=== PATIENT | male | born 1950 ===

== ENCOUNTER 2021-04-26 16:48 | Inpatient (IN) | payer BC, MEDICARE ==
[2021-04-26] MEDS ORDERED: Morphine 4 MG/ML VIAL ONE (17:11)
[2021-04-26 18:03] LABS: #Lymphocytes 0.6 thou/uL (1.20-3.40); #Monocytes 1.1 thou/uL (0.11-0.59); #Neutrophils 10.8 thou/uL (1.40-6.50); %Monocytes 8.5 % (0.0-10.0); %Neutrophils 86.5 % (42.0-75.0); Hemoglobin 9.1 g/dL (14.0-18.0); Mean Corpuscular HGB CONC 33.6 g/dL (32.0-36.0); Mean Platelet Volume 7.4 fL (7.4-10.4); Platelet Count 217 thou/uL (130-400); RBC Distribution Width 11.7 % (11.5-14.5); Red Blood Cell (RBC) Count 2.68 mill/uL (4.70-6.10); White Blood Cell (WBC) Count 12.5 thou/uL (4.8-10.8)
[2021-04-26 18:14] LABS: INR-International Normal Ratio 1.2; PTT 25.1 sec (22.9-36.1); Prothrombin Time 15.3 sec (12.0-14.7)
[2021-04-26 18:19] LABS: Lactic Acid 1.2 mmol/L (0.5-2.2)
[2021-04-26 18:22] LABS: ALT (SGPT) 60 U/L (8-55); AST (SGOT) 158 U/L (5-34); Albumin 2.9 g/dL (3.4-4.8); Alkaline Phosphatase 48 U/L (40-110); Anion Gap 15 mmol/L (10-20); BUN (Urea Nitrogen) 69 mg/dL (8.4-25.7); Bilirubin, Total 0.9 mg/dL (0.2-1.2); Calc. Creatinine Clearance 0 mL/min (70-130); Carbon Dioxide 20 mmol/L (23-31); Chloride 105 mmol/L (98-107); Globulin 2.2 g/dL (2.4-3.5); Glucose 104 mg/dL (80-115); Magnesium 2.2 mg/dL (1.6-2.6); Phosphorus 4.7 mg/dL (2.3-4.7); Potassium 5.8 mmol/L (3.5-5.1); Protein, Total 5.1 g/dL (5.8-8.1); Sodium 134 mmol/L (136-145)
[2021-04-26] MEDS ORDERED: Dextrose 50% Abboject 50 ML SYRINGE SLOW IVP PRN (18:27)
[2021-04-26] MEDS ORDERED: Ondansetron PF 4 MG/2 ML Vial IVP PRN (18:27)
[2021-04-26] MEDS ORDERED: Dextrose 5% in Water 1,000 ML IV PRN (18:27)
[2021-04-26] MEDS ORDERED: hydrALAZINE 20 MG/ML VIAL SLOW IVP PRN (18:27)
[2021-04-26] MEDS ORDERED: HYDROcodone/Acetaminophen 10/325 mg Tablet PO PRN ×2 (18:27→19:35)
[2021-04-26 18:48] LABS: CK (CPK) 7955 U/L (30-200)
[2021-04-26 20:50] VITALS: BMI 21.2
[2021-04-26] MEDS: Senokot S 8.6-50 MG TAB PO SCH (20:57)
[2021-04-26] MEDS: Famotidine 20 MG TAB PO SCH (20:57)
[2021-04-26] MEDS ORDERED: Bacitracin 1 PK TOP SCH (21:00)
[2021-04-26] MEDS: ceFAZolin Sodium/D5W 2 GM in Premix Bag 1 BAG IVPB SCH (21:19)
[2021-04-26] MEDS: Sodium Chloride 0.9% 1,000 ML IV SCH (21:19)
[2021-04-26] MEDS: Acetaminophen 500 MG TAB PO SCH (23:26)
[2021-04-27] MEDS: Morphine 4 MG/ML VIAL SLOW IVP PRN ×2 (04:55→08:50)
[2021-04-27] MEDS: ceFAZolin Sodium/D5W 2 GM in Premix Bag 1 BAG IVPB SCH ×2 (04:55→18:00)
[2021-04-27] MEDS: Sodium Chloride 0.9% 1,000 ML IV SCH ×4 (04:56→20:45)
[2021-04-27] MEDS: Acetaminophen 500 MG TAB PO SCH (04:56)
[2021-04-27 08:15] LABS: #Lymphocytes 0.9 thou/uL (1.20-3.40); #Neutrophils 9.4 thou/uL (1.40-6.50); %Basophils 0.1 % (0.0-1.0); %Eosinophils 0.1 % (0.0-10.0); %Lymphocytes 7.6 % (21.0-51.0); %Monocytes 8.9 % (0.0-10.0); %Neutrophils 83.4 % (42.0-75.0); Hemoglobin 8.6 g/dL (14.0-18.0); Mean Corpuscular HGB CONC 33.4 g/dL (32.0-36.0); Mean Corpuscular Hemoglobin 33.4 pg (27.0-31.0); Mean Platelet Volume 7.3 fL (7.4-10.4); Platelet Count 200 thou/uL (130-400); RBC Distribution Width 11.6 % (11.5-14.5); Red Blood Cell (RBC) Count 2.56 mill/uL (4.70-6.10); White Blood Cell (WBC) Count 11.3 thou/uL (4.8-10.8)
[2021-04-27 08:31] LABS: Anion Gap 10 mmol/L (10-20); BUN (Urea Nitrogen) 55 mg/dL (8.4-25.7); Calc. Creatinine Clearance 19 mL/min (70-130); Calcium 7.9 mg/dL (7.8-10.44); Carbon Dioxide 26 mmol/L (23-31); Chloride 103 mmol/L (98-107); Glucose 91 mg/dL (80-115); Magnesium 2.2 mg/dL (1.6-2.6); Phosphorus 3.8 mg/dL (2.3-4.7); Potassium 4.4 mmol/L (3.5-5.1); Sodium 135 mmol/L (136-145)
[2021-04-27 08:45] LABS: CK (CPK) 6177 U/L (30-200)
[2021-04-27] MEDS: Bacitracin 1 PK TOP SCH ×2 (08:54→20:39)
[2021-04-27] MEDS: Polyethylene Glycol 3350 17 GM Packet PO SCH (08:55)
[2021-04-27] MEDS: Senokot S 8.6-50 MG TAB PO SCH ×2 (08:55→20:38)
[2021-04-27] MEDS ORDERED: Acetaminophen 325 MG TAB PO SCH (12:45)
[2021-04-27] MEDS ORDERED: Acetaminophen/Codeine 30-300mg Tablet PO SCH (12:45)
[2021-04-27] MEDS: Cyclobenzaprine 10 MG TAB PO PRN (12:51)
[2021-04-27] MEDS: Acetaminophen 325 MG TAB PO SCH (17:59)
[2021-04-27] MEDS: Acetaminophen/Codeine 30-300mg Tablet PO SCH (18:00)
[2021-04-27] MEDS: Famotidine 20 MG TAB PO SCH (20:38)
[2021-04-28] MEDS: Acetaminophen/Codeine 30-300mg Tablet PO SCH ×5 (00:44→18:01)
[2021-04-28] MEDS: Acetaminophen 325 MG TAB PO SCH ×5 (00:44→18:07)
[2021-04-28] MEDS: Sodium Chloride 0.9% 1,000 ML IV SCH ×3 (01:25→20:33)
[2021-04-28 05:01] LABS: Anion Gap 8 mmol/L (10-20); BUN (Urea Nitrogen) 30 mg/dL (8.4-25.7); CK (CPK) 3662 U/L (30-200); Calc. Creatinine Clearance 36 mL/min (70-130); Calcium 7.7 mg/dL (7.8-10.44); Carbon Dioxide 25 mmol/L (23-31); Chloride 106 mmol/L (98-107); Glucose 109 mg/dL (80-115); Sodium 135 mmol/L (136-145)
[2021-04-28 05:03] LABS: Phosphorus 1.9 mg/dL (2.3-4.7)
[2021-04-28] MEDS: Cyclobenzaprine 10 MG TAB PO PRN ×2 (05:59→20:33)
[2021-04-28] MEDS: ceFAZolin Sodium/D5W 2 GM in Premix Bag 1 BAG IVPB SCH ×2 (05:59→18:02)
[2021-04-28] MEDS ORDERED: Sodium Phosphate 30 MMOL in Sodium Chloride 0.9% 250 ML 250 ML IVPB SCH (06:29)
[2021-04-28] MEDS: Senokot S 8.6-50 MG TAB PO SCH ×2 (09:34→20:33)
[2021-04-28] MEDS: Bacitracin 1 PK TOP SCH ×2 (09:35→20:42)
[2021-04-28] MEDS: Ferrous Sulfate 325 MG TAB PO SCH (09:46)
[2021-04-28] MEDS: Ascorbic Acid 500 mg Chewable Tablet PO SCH (09:47)
[2021-04-28] MEDS: Polyethylene Glycol 3350 17 GM Packet PO SCH (09:47)
[2021-04-28] MEDS: Famotidine 20 MG TAB PO SCH (20:33)
[2021-04-29] MEDS: Acetaminophen 325 MG TAB PO SCH ×5 (00:07→23:54)
[2021-04-29] MEDS: Acetaminophen/Codeine 30-300mg Tablet PO SCH ×5 (00:08→23:54)
[2021-04-29] MEDS: Sodium Chloride 0.9% 1,000 ML IV SCH (04:15)
[2021-04-29 05:47] LABS: Anion Gap 7 mmol/L (10-20); BUN (Urea Nitrogen) 14 mg/dL (8.4-25.7); CK (CPK) 1737 U/L (30-200); Calc. Creatinine Clearance 51 mL/min (70-130); Calcium 8.1 mg/dL (7.8-10.44); Carbon Dioxide 28 mmol/L (23-31); Chloride 107 mmol/L (98-107); Glucose 92 mg/dL (80-115); Potassium 3.9 mmol/L (3.5-5.1); Sodium 138 mmol/L (136-145)
[2021-04-29] MEDS: ceFAZolin Sodium/D5W 2 GM in Premix Bag 1 BAG IVPB SCH ×3 (06:00→21:45)
[2021-04-29] MEDS: Ferrous Sulfate 325 MG TAB PO SCH (10:12)
[2021-04-29] MEDS: Polyethylene Glycol 3350 17 GM Packet PO SCH (10:13)
[2021-04-29] MEDS: Ascorbic Acid 500 mg Chewable Tablet PO SCH (10:13)
[2021-04-29] MEDS: Senokot S 8.6-50 MG TAB PO SCH ×2 (10:13→21:46)
[2021-04-29] MEDS: Cyclobenzaprine 10 MG TAB PO PRN (10:21)
[2021-04-29] MEDS ORDERED: Lidocaine 1% (PF) 30 ML VIAL ONE (14:23)
[2021-04-29] MEDS: Bacitracin 1 PK TOP SCH ×2 (14:48→21:54)
[2021-04-29] MEDS: Heparin 5,000 UNITS/ML VIAL SC SCH ×2 (15:52→21:46)
[2021-04-29] MEDS: Famotidine 20 MG TAB PO SCH (21:46)
[2021-04-29] MEDS: Lisinopril 5 MG TAB PO SCH (21:46)
[2021-04-30] MEDS: Acetaminophen/Codeine 30-300mg Tablet PO SCH ×4 (05:18→23:33)
[2021-04-30] MEDS: Acetaminophen 325 MG TAB PO SCH ×4 (05:18→23:33)
[2021-04-30] MEDS: ceFAZolin Sodium/D5W 2 GM in Premix Bag 1 BAG IVPB SCH (05:26)
[2021-04-30] MEDS: Ferrous Sulfate 325 MG TAB PO SCH (10:41)
[2021-04-30] MEDS: Bacitracin 1 PK TOP SCH ×2 (10:41→21:05)
[2021-04-30] MEDS: Senokot S 8.6-50 MG TAB PO SCH ×2 (10:41→21:06)
[2021-04-30] MEDS: Ascorbic Acid 500 mg Chewable Tablet PO SCH (10:41)
[2021-04-30] MEDS: Heparin 5,000 UNITS/ML VIAL SC SCH ×3 (10:41→21:05)
[2021-04-30] MEDS: Lisinopril 5 MG TAB PO SCH ×2 (10:41→21:05)
[2021-04-30] MEDS: Polyethylene Glycol 3350 17 GM Packet PO SCH (10:46)
[2021-04-30] MEDS: Cyclobenzaprine 10 MG TAB PO PRN (10:52)
[2021-04-30] MEDS: Famotidine 20 MG TAB PO SCH (21:05)
[2021-04-30] MEDS: Cephalexin 250 MG CAP PO SCH (21:05)
[2021-05-01] MEDS: Acetaminophen 325 MG TAB PO SCH ×3 (05:11→17:19)
[2021-05-01] MEDS: Acetaminophen/Codeine 30-300mg Tablet PO SCH ×3 (05:12→17:20)
[2021-05-01] MEDS: Cephalexin 250 MG CAP PO SCH ×2 (09:21→20:53)
[2021-05-01] MEDS: Ferrous Sulfate 325 MG TAB PO SCH (09:21)
[2021-05-01] MEDS: Heparin 5,000 UNITS/ML VIAL SC SCH ×3 (09:21→20:53)
[2021-05-01] MEDS: Bacitracin 1 PK TOP SCH ×2 (09:21→20:52)
[2021-05-01] MEDS: Ascorbic Acid 500 mg Chewable Tablet PO SCH (09:22)
[2021-05-01] MEDS: Saccharomyces boulardii 250 MG CAP PO SCH (09:22)
[2021-05-01] MEDS: Lisinopril 5 MG TAB PO SCH ×2 (09:22→20:53)
[2021-05-01] MEDS: Polyethylene Glycol 3350 17 GM Packet PO SCH (09:25)
[2021-05-01] MEDS: Senokot S 8.6-50 MG TAB PO SCH ×2 (09:25→20:52)
[2021-05-01] MEDS: Cyclobenzaprine 10 MG TAB PO PRN (09:56)
[2021-05-01] MEDS: Famotidine 20 MG TAB PO SCH (20:53)
[2021-05-02] MEDS: Acetaminophen 325 MG TAB PO SCH ×5 (00:21→23:21)
[2021-05-02] MEDS: Acetaminophen/Codeine 30-300mg Tablet PO SCH ×5 (00:21→23:20)
[2021-05-02] MEDS: Ferrous Sulfate 325 MG TAB PO SCH (09:32)
[2021-05-02] MEDS: Lisinopril 5 MG TAB PO SCH ×2 (09:32→20:22)
[2021-05-02] MEDS: Polyethylene Glycol 3350 17 GM Packet PO SCH (09:32)
[2021-05-02] MEDS: Bacitracin 1 PK TOP SCH ×2 (09:32→20:23)
[2021-05-02] MEDS: Cephalexin 250 MG CAP PO SCH ×2 (09:33→20:22)
[2021-05-02] MEDS: Ascorbic Acid 500 mg Chewable Tablet PO SCH (09:33)
[2021-05-02] MEDS: Heparin 5,000 UNITS/ML VIAL SC SCH ×3 (09:33→20:23)
[2021-05-02] MEDS: Saccharomyces boulardii 250 MG CAP PO SCH (09:33)
[2021-05-02] MEDS: Senokot S 8.6-50 MG TAB PO SCH ×2 (09:33→20:22)
[2021-05-02] MEDS: Cyclobenzaprine 10 MG TAB PO PRN ×2 (09:38→20:26)
[2021-05-02] MEDS: Famotidine 20 MG TAB PO SCH (20:23)
[2021-05-03] MEDS: Acetaminophen/Codeine 30-300mg Tablet PO SCH ×4 (05:15→23:56)
[2021-05-03] MEDS: Acetaminophen 325 MG TAB PO SCH ×4 (05:16→23:57)
[2021-05-03] MEDS: Polyethylene Glycol 3350 17 GM Packet PO SCH (08:39)
[2021-05-03] MEDS: Ferrous Sulfate 325 MG TAB PO SCH (08:39)
[2021-05-03] MEDS: Bacitracin 1 PK TOP SCH ×2 (08:39→21:40)
[2021-05-03] MEDS: Senokot S 8.6-50 MG TAB PO SCH ×2 (08:39→21:39)
[2021-05-03] MEDS: Ascorbic Acid 500 mg Chewable Tablet PO SCH (08:39)
[2021-05-03] MEDS: Saccharomyces boulardii 250 MG CAP PO SCH (08:40)
[2021-05-03] MEDS: Lisinopril 5 MG TAB PO SCH ×2 (08:40→21:39)
[2021-05-03] MEDS: Heparin 5,000 UNITS/ML VIAL SC SCH ×3 (08:40→21:40)
[2021-05-03 18:11] LABS: SARS-CoV-2 PCR by NAA Not Detected (NotDetected)
[2021-05-03] MEDS: Cyclobenzaprine 10 MG TAB PO PRN (21:39)
[2021-05-03] MEDS: Famotidine 20 MG TAB PO SCH (21:40)
[2021-05-04] MEDS: Acetaminophen 325 MG TAB PO SCH ×4 (05:52→23:12)
[2021-05-04] MEDS: Acetaminophen/Codeine 30-300mg Tablet PO SCH ×4 (05:53→23:13)
[2021-05-04] MEDS: Saccharomyces boulardii 250 MG CAP PO SCH (09:38)
[2021-05-04] MEDS: Ferrous Sulfate 325 MG TAB PO SCH (09:38)
[2021-05-04] MEDS: Polyethylene Glycol 3350 17 GM Packet PO SCH (09:38)
[2021-05-04] MEDS: Ascorbic Acid 500 mg Chewable Tablet PO SCH (09:38)
[2021-05-04] MEDS: Senokot S 8.6-50 MG TAB PO SCH ×2 (09:38→20:05)
[2021-05-04] MEDS: Bacitracin 1 PK TOP SCH ×2 (09:38→20:06)
[2021-05-04] MEDS: Heparin 5,000 UNITS/ML VIAL SC SCH ×3 (09:39→20:05)
[2021-05-04] MEDS: Lisinopril 5 MG TAB PO SCH ×2 (09:39→20:05)
[2021-05-04] MEDS: Famotidine 20 MG TAB PO SCH (20:05)
[2021-05-04] MEDS: Cyclobenzaprine 10 MG TAB PO PRN (23:18)
[2021-05-05] MEDS: Acetaminophen 325 MG TAB PO SCH ×3 (05:33→16:52)
[2021-05-05] MEDS: Acetaminophen/Codeine 30-300mg Tablet PO SCH ×3 (05:33→16:53)
[2021-05-05 06:45] LABS: #Eosinphils 0.1 thou/uL (0.0-0.7); #Lymphocytes 1.3 thou/uL (1.20-3.40); #Monocytes 0.6 thou/uL (0.11-0.59); #Neutrophils 6.1 thou/uL (1.40-6.50); %Basophils 0.2 % (0.0-1.0); %Eosinophils 1.6 % (0.0-10.0); %Lymphocytes 15.7 % (21.0-51.0); %Monocytes 7.8 % (0.0-10.0); %Neutrophils 74.7 % (42.0-75.0); Hemoglobin 8.9 g/dL (14.0-18.0); Mean Corpuscular HGB CONC 33.6 g/dL (32.0-36.0); Mean Corpuscular Hemoglobin 35.1 pg (27.0-31.0); Mean Platelet Volume 5.5 fL (7.4-10.4); Platelet Count 429 thou/uL (130-400); RBC Distribution Width 13.2 % (11.5-14.5); Red Blood Cell (RBC) Count 2.54 mill/uL (4.70-6.10); White Blood Cell (WBC) Count 8.2 thou/uL (4.8-10.8)
[2021-05-05 07:04] LABS: Anion Gap 11 mmol/L (10-20); BUN (Urea Nitrogen) 14 mg/dL (8.4-25.7); Calc. Creatinine Clearance 58 mL/min (70-130); Calcium 8.4 mg/dL (7.8-10.44); Carbon Dioxide 26 mmol/L (23-31); Chloride 104 mmol/L (98-107); Glucose 94 mg/dL (80-115); Magnesium 1.8 mg/dL (1.6-2.6); Phosphorus 3.5 mg/dL (2.3-4.7); Potassium 4.3 mmol/L (3.5-5.1); Sodium 137 mmol/L (136-145)
[2021-05-05] MEDS: Heparin 5,000 UNITS/ML VIAL SC SCH ×3 (10:03→21:07)
[2021-05-05] MEDS: Saccharomyces boulardii 250 MG CAP PO SCH (10:05)
[2021-05-05] MEDS: Ferrous Sulfate 325 MG TAB PO SCH (10:05)
[2021-05-05] MEDS: Bacitracin 1 PK TOP SCH ×2 (10:06→21:06)
[2021-05-05] MEDS: Ascorbic Acid 500 mg Chewable Tablet PO SCH (10:07)
[2021-05-05] MEDS: Senokot S 8.6-50 MG TAB PO SCH ×2 (10:09→21:06)
[2021-05-05] MEDS: Polyethylene Glycol 3350 17 GM Packet PO SCH (10:09)
[2021-05-05] MEDS: Lisinopril 5 MG TAB PO SCH ×2 (10:09→21:06)
[2021-05-05] MEDS: Famotidine 20 MG TAB PO SCH (21:06)
[2021-05-06] MEDS: Acetaminophen 325 MG TAB PO SCH ×5 (00:18→19:04)
[2021-05-06] MEDS: Acetaminophen/Codeine 30-300mg Tablet PO SCH ×2 (00:19→06:18)
[2021-05-06] MEDS: Cyclobenzaprine 10 MG TAB PO PRN ×3 (00:23→19:51)
[2021-05-06] MEDS: Bacitracin 1 PK TOP SCH ×2 (08:24→19:49)
[2021-05-06] MEDS: Ascorbic Acid 500 mg Chewable Tablet PO SCH (08:24)
[2021-05-06] MEDS: Heparin 5,000 UNITS/ML VIAL SC SCH ×3 (08:25→19:49)
[2021-05-06] MEDS: Ferrous Sulfate 325 MG TAB PO SCH (08:25)
[2021-05-06] MEDS: Saccharomyces boulardii 250 MG CAP PO SCH (08:25)
[2021-05-06] MEDS: Senokot S 8.6-50 MG TAB PO SCH ×2 (08:25→19:49)
[2021-05-06] MEDS: Lisinopril 5 MG TAB PO SCH ×2 (08:26→19:49)
[2021-05-06] MEDS: Polyethylene Glycol 3350 17 GM Packet PO SCH (08:30)
[2021-05-06] MEDS: Famotidine 20 MG TAB PO SCH (19:49)
[2021-05-07] MEDS: Acetaminophen 325 MG TAB PO SCH ×3 (00:33→12:22)
[2021-05-07] MEDS ORDERED: Multivit, Therapeutic 1 TAB PO SCH (09:00)
[2021-05-07] MEDS ORDERED: Zinc Sulfate 220 MG CAP PO SCH (09:00)
[2021-05-07] MEDS: Senokot S 8.6-50 MG TAB PO SCH (10:10)
[2021-05-07] MEDS: Cyclobenzaprine 10 MG TAB PO PRN (10:10)
[2021-05-07] MEDS: Ferrous Sulfate 325 MG TAB PO SCH (10:11)
[2021-05-07] MEDS: Saccharomyces boulardii 250 MG CAP PO SCH (10:11)
[2021-05-07] MEDS: Ascorbic Acid 500 mg Chewable Tablet PO SCH (10:11)
[2021-05-07] MEDS: Heparin 5,000 UNITS/ML VIAL SC SCH (10:11)
[2021-05-07] MEDS: Bacitracin 1 PK TOP SCH (10:11)
[2021-05-07] MEDS: Lisinopril 5 MG TAB PO SCH (10:12)
[2021-05-07] MEDS: Polyethylene Glycol 3350 17 GM Packet PO SCH (10:12)
[2021-05-07 12:20] VITALS: BP 116/78; TEMP 98.7
== END 2021-05-07 13:20 | disposition home or self-care (01) | DRG 86 ==
LOC: EEVIPCON 16:48 → ERS 16:48 → SURG A 18:27
PROVIDERS: ADMIT Surgery; ATTEND Surgery
DX: S02.831A Fracture of medial orbital wall, right side, initial encounter for closed fracture (principal); Z20.822 Contact with and (suspected) exposure to COVID-19; S22.32XA Fracture of one rib, left side, initial encounter for closed fracture; N17.9 Acute kidney failure, unspecified; T74.11XA Adult physical abuse, confirmed, initial encounter; T79.6XXA Traumatic ischemia of muscle, initial encounter; S41.112A Laceration without foreign body of left upper arm, initial encounter; S41.111A Laceration without foreign body of right upper arm, initial encounter; S81.812A Laceration without foreign body, left lower leg, initial encounter; S81.811A Laceration without foreign body, right lower leg, initial encounter; Y04.8XXA Assault by other bodily force, initial encounter; S02.2XXA Fracture of nasal bones, initial encounter for closed fracture; Z98.52 Vasectomy status
CPT/HCPCS: 36415; 80048; 80053; 82550; 83605; 83735; 84100; 85025; 85610; 85730; 86850; 86900; 86901; 93005; 96374; G0390; J1644; J2270; J7050; U0003; U0005